=== PATIENT | male | born 1980 | race Caucasian/White ===

== ENCOUNTER 2017-11-29 04:31 | Emergency (ER) | payer BC ==
[2017-11-29 04:40] VITALS: BP 145/99
--- NOTE | 2017-12-22 11:02 | ED ---
Valencia Alfaro Emily, scribed for Tre Becerra MD on 11/29/17 at 0448 . Skin Complaint - HPI Summary HPI Summary: This patient is a 37 year old M presenting to [facility] with a chief complaint of abscess to R index finger that began on 11/26/2017. The patient rates the pain 3/ 10 in severity. Symptoms aggravated by nothing. Symptoms alleviated by nothing. Patient reports drainage for R index finger and red streaks. Pt reports that he noticed irritation to R pointer finger on 11/26/2017. The morning of there was a pustule. Pt report lancing the pustule with a sterilized 18 baldomero needle. Pt noticed re streaks coming from the wound and began taking Bactrim, but pt reports the medication caused a racing heart, so he switched to Doxycycline. - History of Current Complaint Time Seen by Provider: 11/29/17 04:33 Stated Complaint: RT INDEX FINGER LAC Hx Obtained From: Patient Onset/Duration: Started Days Ago, Still Present Skin Exposure Onset/Duration: Days Ago Timing: Constant Onset Severity: Mild Current Severity: Mild Pain Intensity: 3 Pain Scale Used: 0-10 Numeric Skin Location: Other: - Right index finger Aggravating Symptom(s): Nothing Alleviating Symptom(s): Nothing Associated Signs & Symptoms: Red Streaks - Allergy/Home Medications Allergies/Adverse Reactions: Allergies Allergy/AdvReac Type Severity Reaction Status Date / Time sulfamethoxazole Allergy Shortness Verified 11/29/17 04:36 [From Bactrim] of Breath trimethoprim [From Bactrim] Allergy Shortness Verified 11/29/17 04:36 of Breath PMH/Surg Hx/FS Hx/Imm Hx Previously Healthy: Yes Endocrine/Hematology History: Denies: Hx Diabetes, Hx Thyroid Disease Cardiovascular History: Denies: Hx Hypertension Respiratory History: Denies: Hx Asthma, Hx Chronic Obstructive Pulmonary Disease (COPD) GI History: Denies: Hx Ulcer Infectious Disease History: No Infectious Disease History: Denies: Hx Clostridium Difficile, Hx Hepatitis, Hx Human Immunodeficiency Virus (HIV), Hx of Known/Suspected MRSA, Hx Shingles, Hx Tuberculosis, Hx Known/ Suspected VRE, Hx Known/Suspected VRSA, History Other Infectious Disease, Traveled Outside the [place] in Last 30 Days - Family History Known Family History: Positive: None - Social History Occupation: Employed Full-time Lives: With Family Alcohol Use: Weekly Substance Use Type: Reports: None Smoking Status (MU): Never Smoked Tobacco Review of Systems Negative: Fever Positive: Other - Positive abscess to R index finger, drainage, and red streaks. All Other Systems Reviewed And Are Negative: Yes Physical Exam - Summary Physical Exam Summary: Appearance: Well appearing, no pain distress Skin: warm, dry, reflects adequate perfusion, Open pustule on the dorsal side of the proximal phalanx of the R right index finger. Draining clearish liquid. No flexural surface or swelling, most of the swelling is confined to the proximal phalanx of the R index finger. Head/face: normal Eyes: EOMI, NELIA ENT: normal Neck: supple, non-tender Respiratory: CTA, breath sounds present Cardiovascular: RRR, pulses symmetrical Abdomen: non-tender, soft Bowel: present Musculoskeletal: normal, strength/ROM intact Neuro: normal, sensory motor intact, A&Ox3 Triage Information Reviewed: Yes Vital Signs On Initial Exam: Initial Vitals Temp Pulse Resp BP Pulse Ox 98.3 F 73 16 145/99 100 11/29/17 04:34 11/29/17 04:34 11/29/17 04:34 11/29/17 04:34 11/29/17 04:34 Vital Signs Reviewed: Yes Procedures - Incision and Drainage Site: Right index finger Anesthesia: Lidocaine - 1 CC Instrument(s): Needle, Other - Unroofed it with a pair of forceps and used sharp scissors to open the void. Diagnostics - Vital Signs Vital Signs Temp Pulse Resp BP Pulse Ox 11/29/17 04:34 98.3 F 73 16 145/99 100 - Laboratory Lab Statement: Any lab studies that have been ordered have been reviewed, and results considered in the medical decision making process. Course/Dx - Course Course Of Treatment: Ecchymotic area 2 cm in diameter around the central fluctuant area that had clear drainage. I&D resulted in purulent material. Unroofed it with a pair of forceps and used sharp scissors to open the void. - Diagnoses Provider Diagnoses: Abscess of right index finger Discharge - Sign-Out/Discharge Documenting (check all that apply): Discharge - Discharge Plan Condition: Stable Disposition: HOME Patient Education Materials: Abscess (ED) Referrals: Naz Monte MD [Primary Care Provider] - 1 Day Additional Instructions: Follow up with primary care in one day for wound recheck. Continue doxycycline. Warm compresses. Return to the emergency department for new or worsening symptoms. - Billing Disposition and Condition Condition: STABLE Disposition: HOME The documentation as recorded by the Valencia white Emily accurately reflects the service I personally performed and the decisions made by me, Tre Becerra MD.
== END 2017-11-29 05:10 | disposition home or self-care (01) ==
LOC: ED 04:31
DX: L02.511 Cutaneous abscess of right hand (principal); Z88.3 Allergy status to other anti-infective agents; Z88.2 Allergy status to sulfonamides
CPT/HCPCS: 99282